=== PATIENT | female | born 1975 | race Caucasian/White ===

== ENCOUNTER 2021-08-29 07:54 | Outpatient (REF) | payer BC, SELFPAY | END 2021-08-29 07:55 | disposition home or self-care (01) | LOC: HO.HMGCLDS 07:54 | PROVIDERS: PCP Internal Medicine; Visit Provider Internal Medicine | DX: Z20.822 Contact with and (suspected) exposure to COVID-19 (principal) | CPT/HCPCS: C9803; U0003; U0005 ==

== ENCOUNTER 2023-01-02 10:53 | Outpatient (REF) | payer BC, SELFPAY ==
[2023-01-02 13:18] LABS: MANUAL DIFF FLAG NO
[2023-01-02 13:27] LABS: Basophils Absolute Auto 0.1 X10*3/uL (0.0-0.2); Basophils Percent Auto 0.7 % (0-2); Eosinophils Absolute Auto 0.2 X10*3/uL (0.0-0.4); Eosinophils Percent Auto 2.6 % (0-4); Hematocrit 37.2 % (37.0-47.0); Imm Gran Abs Auto 0.03 X10*3/uL (0.00-0.03); Imm Gran Pct Auto 0.4 % (0.0-0.4); Lymphocytes Absolute Auto 1.7 X10*3/uL (1.2-4.9); Lymphocytes Percent Auto 23.8 % (20-40); Mean Corpuscular HGB Conc 32.3 g/dl (31.0-35.0); Mean Corpuscular Hemoglobin 27.4 pg (27.0-33.0); Mean Corpuscular Volume 84.9 fL (80.0-98.0); Mean Platelet Volume 9.1 fL (9.4-12.3); Monocytes Absolute Auto 0.4 X10*3/uL (0.1-1.2); Monocytes Percent Auto 6.1 % (2-11); Neutrophils Absolute Auto 4.8 x10*3/uL (2.0-8.3); Neutrophils Percent Auto 66.4 % (45-73); Platelet Count 319 X10*3/uL (160-400); Red Blood Count 4.38 X10*6/uL (4.20-5.50); Red Cell Distribution Width 12.8 % (11.0-16.0); White Blood Count 7.3 X10*3/uL (4.8-10.8)
[2023-01-02 13:51] LABS: Anion Gap 12 (12-20); Blood Urea Nitrogen 19 mg/dL (9-16); Carbon Dioxide 28 mmol/L (22-29); Chloride 103 mmol/L (96-108); Cholesterol 229 mg/dL; Estimated Glomerular Filt Rate > 60; Glucose Fasting 92 mg/dL (60-99); HDL Cholesterol 64 mg/dL; LDL Cholesterol Calculated 149 mg/dl; Potassium 4.1 mmol/L (3.3-5.1); Sodium 139 mmol/L (135-145); Triglycerides 83 mg/dL
[2023-01-02 14:08] LABS: Thyroid Stimulating Hormone 0.49 uIU/mL (0.32-4.0)
== END 2023-01-02 10:54 | disposition home or self-care (01) ==
LOC: HO.10HDL 10:53
PROVIDERS: Visit Provider Internal Medicine
DX: E07.9 Disorder of thyroid, unspecified (principal); Z82.49 Family history of ischemic heart disease and other diseases of the circulatory system
CPT/HCPCS: 36415; 80048; 80061; 84443; 85025

== ENCOUNTER 2023-09-25 07:52 | Day surgery (SDC) | payer BC, SELFPAY ==
--- NOTE | 2023-09-24 09:50 | HO.ANESPROP2 ---
Documented by User: Cintia Suarez NP 09/24/23 09:52 HPI - Anesthesia Eval Consult details Narrative: 47yo F for Colonoscopy [facility] Past Medical History Medical History No known health problems Social History Social History Advance Directives: No Advance Directives Information Provided: Yes Meds Allergies Allergy/AdvReac Type Severity Reaction Status Date / Time No Known Allergies Allergy Verified 09/24/23 09:51 Home Medications Medication Instructions Recorded Confirmed Last Taken Type No Known Home Meds 09/24/23 09/24/23 Unknown History Documented by User: Iwona Aguilar MD 09/25/23 08:22 [facility] Past Medical History Medical History No known health problems Family History Family history of problems with anesthesia: No Surgical History History of Problems with Anesthesia: No Social History Social History Advance Directives: No Advance Directives Information Provided: Yes Meds Allergies Allergy/AdvReac Type Severity Reaction Status Date / Time No Known Allergies Allergy Verified 09/24/23 09:51 Home Medications Medication Instructions Recorded Confirmed Last Taken Type No Known Home Meds 09/24/23 09/24/23 Unknown History Exam Airway Mallampati Class: II TM Dist: >3cm Neck ROM: Full Heart: rrr Lungs: cta Assessment and Plan Assessment Anesthesia Assessment: Anesthesia Plan Discussed and Chart Reviewed Final Anesthetic Review Family History of Problems with Anesthesia: No History of Problems with Anesthesia: No NPO: Yes ASA Class: I Final Preanesthetic Review: No Changes in Pt Med Stat, Meds/Allgs Chart Reviewed, Consent Obtained/Reviewed and Anes Risks/Benef Reviewed Patient Risk: Low Procedure Risk: Low Anesthetic Plan Anesthetic Plan: MAC: Disposition: Standard PACU
--- OUTSIDE RECORDS SUMMARY | 2023-09-25 07:55 | XMS_ITS | Continuity of Care Document ---
Author Name Unknown Organization [facility] Address [address] [place] [address]- Care Team Providers Care Bronze Chaser Name Role Phone Mt Dinero MD Primary Care Physician Encounter 08/08/20 - 08/15/20 [facility] [address], [address] [place], [place] [address] Attending Physician: Dot Perez CNM Admitting Physician: Dot Perez CNM Referring Physician: Dot Perez CNM Allergies, Adverse Reactions, Alerts Substance Reaction Severity Status NKA Active Immunizations Given and Recorded Vaccine Date Status Refusal Reason influ virus vac, H1N1, inactive(oldterm) 1 07/05/09 Given Influenza Inactive (IM) (oldterm) 06/21/09 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 Refills 1, Soft Stop, 05/20/18 12:12:00 EDT, Route to Pharmacy Electronically, [id number], [facility] Start Date: 05/20/18 Status: Ordered Problem List Condition Effective Dates Status Health Status Inform ant Family history of neoplasm o f breast(Confirmed) Active H/O: breast problem(Confirmed) Active (Confirmed) Active Unexplained infertility(Confirmed) Active Social History Social History Type Response Smoking Status Never smoker entered on: 03/23/14 Sex
--- OUTSIDE RECORDS SUMMARY | 2023-09-25 07:55 | XMS_ITS | Continuity of Care Document ---
Author Name Unknown Organization [facility] [employer] [facility] Address [address] [place] [address]- Care Team Providers Care Supervisor Evaporator Name Role Phone Mt Dinero MD [id number] - 07/31/22 [facility] [employer] [facility] [address] [place], [place] [address] Allergies, Adverse Reactions, Alerts No Known Allergies Immunizations Given and Recorded Vaccine Date Status Refusal Reason influ virus vac, H1N1, inactive(oldterm) 1 07/05/09 Given Influenza Inactive (IM) (oldterm) 06/21/09 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 Refills 1, Soft Stop, 05/20/18 12:12:00 EDT, Route to Pharmacy Electronically, [id number], [facility] Start Date: 05/20/18 Status: Ordered Problem List Condition Confirmation Course Effective Dates Status Health [facility] Informant Family history of neoplasm of breast Confirmed Active H/O: breast problem Confirmed Active Confirmed Active Unexplained infertility Confirmed Active Social History Social History Type Response Smoking Status Never smoker entered on: 03/23/14 Sex Patient Care team information Care Team Personnel Name: Mt Dinero MD Position: S Outreach Member Role: PCP Address: Address: [address] [place] [address] Care Team Related Persons Name: JEAN MARIE UNDERWOOD Address: home [address] [place] [address]
--- OUTSIDE RECORDS SUMMARY | 2023-09-25 07:55 | XMS_ITS | Continuity of Care Document ---
Author Name Unknown Organization [facility] Address [address] [facility] [place] [address]- Care Team Providers Care Solar Development Engineer Name Role Phone Mt Dinero MD Primary Care Physician Encounter 09/12/22 - 09/19/22 [facility] [address], [address] [place] [address]- Attending Physician: Snehal Braga Admitting Physician: Snehal Braga Referring Physician: Snehal Braga Allergies, Adverse Reactions, Alerts No Known Allergies Immunizations Given and Recorded Vaccine Date Status Refusal Reason influ virus vac, H1N1, inactive(oldterm) 1 07/05/09 Given Influenza Inactive (IM) (oldterm) 06/21/09 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 Refills 1, Soft Stop, 05/20/18 12:12:00 EDT, Route to Pharmacy Electronically, [id number], [facility] Start Date: 05/20/18 Status: Ordered Problem List Condition Confirmation Course Effective Dates Status Health [facility] Informant Family history of neoplasm of breast Confirmed Active H/O: breast problem Confirmed Active Confirmed Active Unexplained infertility Confirmed Active Results Radiology Reports * Exam Date Time Procedure Performing Provider Status 09/12/22 11:13 AM MM Digital Mammo Screening Lillie Diaz; Auth (Verified) Notes: (MM Digital Mammo Screening) Reason For Exam: Z12.31 SCREEN RESULT: MM Digital Mammo Screening PROCEDURE: MM Digital Mammo Screening INDICATION: Screening. No known palpable abnormalities. COMPARISON: The back to 06/17/2018. TECHNIQUE: Full-field digital CC and MLO views of both breasts were obtained. 3-D tomography was used for this examination. Computer-aided detection (CAD) was utilized in the interpretation of this study. DENSITY: The breast tissue is heterogeneously dense, which may obscure masses. FINDINGS: There is no architectural distortion. There is no suspicious grouping of microcalcifications. On this MLO view IMPRESSION: 1. I recommend that the patient return for further evaluation of . Right MLO view only there is a 5 mm long axis oval abnormality located superiorly in the breast 3 cm from the nipple image 9/82. 2. Specifically, I recommend: Spot compression right MLO view with 3-D tomography. Lateral view right breast with 3-D tomography. If an abnormality persists, then ultrasound would be appropriate.. 3. No mammographic evidence of malignancy in the left breast. RECOMMENDATION: Diagnostic 3D tomosynthesis of the right breast with scheduled ultrasound BI-RADS: 0 (Incomplete - Need Additional Imaging Evaluation. Lay letter mailed to patient WSN: [id number] Ordering Physician: Snehal Ca Dictated By: Redd Martinez MD Dictated Date/Time: 09/12/22 1:25 pm Reviewed By: Redd Martinez MD Signed By: Redd Martinez MD Signed Date/Time: 09/12/22 1:25 pm Transcribed By: RASHIDA Supervisor Farm Equipment Maintenance Date/Time: 09/12/22 1:23 pm Birads: Social History Social History Type Response Smoking Status Never smoker entered on: 03/23/14 Sex MG Breast Screening * SP[employer] , CIS S: TRANSCRIBE Redd Martinez MD: VERIFY Event Display: Result: Authored Date: [id number] PROCEDURE: MM Digital Mammo Screening INDICATION: Screening. No known palpable abnormalities. COMPARISON: The back to 06/17/2018. TECHNIQUE: Full-field digital CC and MLO views of both breasts were obtained. 3-D tomography was used for this examination. Computer-aided detection (CAD) was utilized in the interpretation of this study. DENSITY: The breast tissue is heterogeneously dense, which may obscure masses. FINDINGS: There is no architectural distortion. There is no suspicious grouping of microcalcifications. On this MLO view IMPRESSION: 1. I recommend that the patient return for further evaluation of . Right MLO view only there is a 5 mm long axis oval abnormality located superiorly in the breast 3 cm from the nipple image . 2. Specifically, I recommend: Spot compression right MLO view with 3-D tomography. Lateral view right breast with 3-D tomography. If an abnormality persists, then ultrasound would be appropriate.. 3. No mammographic evidence of malignancy in the left breast. RECOMMENDATION: Diagnostic 3D tomosynthesis of the right breast with scheduled ultrasound BI-RADS: 0 (Incomplete - Need Additional Imaging Evaluation. Lay letter mailed to patient WSN: [id number] Ordering Physician: Snehal Ca Dictated By: Redd Martinez MD Dictated Date/Time: 09/12/22 1:25 pm Reviewed By: Redd Martinez MD Signed By: Redd Martinez MD Signed Date/Time: 09/12/22 1:25 pm Transcribed By: RASHIDA Supervisor Farm Equipment Maintenance Date/Time: 09/12/22 1:23 pm Birads: Patient Care team information Care Team Personnel Name: Mt Dinero MD Position: [facility] Outreach Member Role: PCP Address: Address: [address] [place] [address]- Care Team Related Persons Name: JEAN MARIE UNDERWOOD Address: home [address] [place] [address]
--- OUTSIDE RECORDS SUMMARY | 2023-09-25 07:55 | XMS_ITS | Continuity of Care Document ---
Author Name Unknown Organization [facility] [employer] [facility] Address [address] [place] [address]- Care Team Providers Care Karate Teacher Name Role Phone Mt Dinero MD Primary Care Phys[id number] Date(s): 07/01/22 - 07/31/22 [facility] [place] [facility] [address] [place], [place] [address] Allergies, Adverse Reactions, Alerts No Known Allergies Immunizations Given and Recorded Vaccine Date Status Refusal Reason influ virus vac, H1N1, inactive(oldterm) 1 07/05/09 Given Influenza Inactive (IM) (oldterm) 06/21/09 Given 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 Refills 1, Soft Stop, 05/20/18 12:12:00 EDT, Route to Pharmacy Electronically, [id number], [facility] Start Date: [...] Address: [address] Mt Dinero [place] [address] Care Team Related Persons Name: JEAN MARIE UNDERWOOD Address: home [address] [place] [address]
--- OUTSIDE RECORDS SUMMARY | 2023-09-25 07:55 | XMS_ITS | Continuity of Care Document ---
Author Name Unknown Organization [facility] [employer] [facility] Address [address], [address] [place] [address]- Care Team Providers Care Emergency Physician Name Role Phone Mt Dinero MD Primary Care Physician Encounter [facility] [id number] Date(s): 11/19/22 - 12/19/22 [facility] [address] [facility] [address] [facility] [address] [place], [place] [address] Attending Physician: Jasmin Neri Admitting Physician: AdmJasmin nelson Referring Physician: AdmJasmin nelson Allergies, Adverse Reactions, Alerts No Known Allergies Immunizations Given and Recorded Vaccine Date Status Refusal Reason influ virus vac, H1N1, inactive(oldterm) 1 07/05/09 Given Influenza Inactive (IM) (oldterm) 06/21/09 Given 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 Refills 1, Soft Stop, 05/20/18 12:12:00 EDT, Route to Pharmacy Electronically, [id number], [facility] Start Date: [...] S Outreach Member Role: PCP Address: Address: [address] [place] [address] [place] [address]- Care Team Related Persons Name: JEAN MARIE UNDERWOOD Address: home [address] [place] [address]
--- OUTSIDE RECORDS SUMMARY | 2023-09-25 07:55 | XMS_ITS | Continuity of Care Document ---
Author Name Unknown Organization [facility] Address [address] [place] [address]- Care Team Providers Care Scrap Iron Loader Name Role Phone Mt Dinero MD Primary Care Physician Encounter 09/25/22 - 10/02/22 [facility] [address], [address] [place] [address]- [place] Attending Physician: Snehal Braga Admitting Physician: Snehal Braga Referring Physician: Snehal Braga Allergies, Adverse Reactions, Alerts No Known Allergies Immunizations Given and Recorded Vaccine Date Status Refusal Reason influ virus vac, H1N1, inactive(oldterm) 1 07/05/09 Given Influenza Inactive (IM) (oldterm) 06/21/09 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 Refills 1, Soft Stop, 05/20/18 12:12:00 EDT, Route to Pharmacy Electronically, [id number], [facility] Start Date: 05/20/18 Status: Ordered Problem List Condition Confirmation Course Effective Dates Status Health [facility] Informant Family history of neoplasm of breast Confirmed Active H/O: breast problem Confirmed Active Confirmed Active Unexplained infertility Confirmed Active Results Radiology Reports * Exam Date Time Procedure Performing Provider Status 09/25/22 10:04 AM US Breast Right Limited Almas Stevenson da; Auth (Verified) Notes: (US Breast Right Limited) Reason For Exam: RT ABNORMAL MAMMO RESULT: US Breast Right Limited PROCEDURE: MM Digital Mammo Unilat Right INDICATION: Reason: RT ABNORMAL MAMMO . Callback from screening mammogram, asymmetry in the RIGHT breast on MLO view. Family history of breast cancer, mother at age 50, paternal grandmother at age 80. COMPARISON: 09/12/2022 and mammograms dating back to 06/17/2018. TECHNIQUE: Digital diagnostic RIGHT mammogram: 3-D spot compression MLO view. 3-D full field ML view. Computer-aided detection (CAD) was utilized in the interpretation of this study. Targeted high-resolution RIGHT breast ultrasound. FINDINGS: MAMMOGRAM: No persistent abnormality seen on the spot compression MLO view; the asymmetry compresses out and blends in with adjacent fibroglandular tissue. On the full-field ML view there is a 4-5 mmovoid partially obscured asymmetry 1.8 cm from the nipple likely what was seen on the original MLO view, localizes lateral on the ML tomosynthesis images. Further imaging performed with ultrasound. ULTRASOUND: Targeted high-resolution RIGHT breast ultrasound, focused imaging 9:00 to 12:00 retroareolar up to 4 cm from the nipple, in the region of the asymmetry. At the 10:00 position 3 cm from the nipple there is an oval anechoic avascular simple cyst measuring 4 x 2 x 3 mm, thought to correlate with the ovoid asymmetry on mammography. No suspicious solid mass or shadowing. IMPRESSION: No mammographic or ultrasound evidence of malignancy. Benign 4 mm RIGHT breast cyst. Recommend return to annual screening mammography. RECOMMENDATION: Annual mammographic screening BI-RADS: 2 (Benign) Lay letter mailed to patient Results and follow-up recommendations verbally communicated to the patient at [facility] 09/25/2022 10:06 AM. WSN: [id number] Ordering Physician: Snehal Ca Dictated By: Magdalene Foster MD Dictated Date/Time: 09/25/22 11:54 a Reviewed By: Magdalene Foster MD Signed By: Magdalene Foster MD Signed Date/Time: 09/25/22 11:54 am Transcribed By: RASHIDA Transcribed Date/Time: 09/25/22 11:54 am * Exam Date Time Procedure Performing Provider Status 09/25/22 9:14 AM MM Digital Mammo Unilat Right Yolanda Ghosh; Auth (Verified) Notes: (MM Digital Mammo Unilat Right) Reason For Exam: RT ABNORMAL MAMMO RESULT: MM Digital Mammo Unilat Right PROCEDURE: MM Digital Mammo Unilat Right INDICATION: Reason: RT ABNORMAL MAMMO . Callback from screening mammogram, asymmetry in the RIGHT breast on MLO view. Family history of breast cancer, mother at age 50, paternal grandmother at age 80. COMPARISON: 09/12/2022 and mammograms dating back to 06/17/2018. TECHNIQUE: Digital diagnostic RIGHT mammogram: 3-D spot compression MLO view. 3-D full field ML view. Computer-aided detection (CAD) was utilized in the interpretation of this study. Targeted high-resolution RIGHT breast ultrasound. FINDINGS: MAMMOGRAM: No persistent abnormality seen on the spot compression MLO view; the asymmetry compresses out and blends in with adjacent fibroglandular tissue. On the full-field ML view there is a 4-5 mmovoid partially obscured asymmetry 1.8 cm from the nipple likely what was seen on the original MLO view, localizes lateral on the ML tomosynthesis images. Further imaging performed with ultrasound. ULTRASOUND: Targeted high-resolution RIGHT breast ultrasound, focused imaging 9:00 to 12:00 retroareolar up to 4 cm from the nipple, in the region of the asymmetry. At the 10:00 position 3 cm from the nipple there is an oval anechoic avascular simple cyst measuring 4 x 2 x 3 mm, thought to correlate with the ovoid asymmetry on mammography. No suspicious solid mass or shadowing. IMPRESSION: No mammographic or ultrasound evidence of malignancy. Benign 4 mm RIGHT breast cyst. Recommend return to annual screening mammography. RECOMMENDATION: Annual mammographic screening BI-RADS: 2 (Benign) Lay letter mailed to patient Results and follow-up recommendations verbally communicated to the patient at [facility] 09/25/2022 10:06 AM. 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 Callback from screening mammogram, asymmetry in the RIGHT breast on MLO view. Family history of breast cancer, mother at age 50, paternal grandmother at age 80. COMPARISON: 09/12/2022 and mammograms dating back to 06/17/2018. TECHNIQUE: Digital diagnostic RIGHT mammogram: 3-D spot compression MLO view. 3-D full field ML view. Computer-aided detection (CAD) was utilized in the interpretation of this study. Targeted high-resolution RIGHT breast ultrasound. FINDINGS: MAMMOGRAM: No persistent abnormality seen on the spot compression MLO view; the asymmetry compresses out and blends in with adjacent fibroglandular tissue. On the full-field ML view there is a 4-5 mmovoid partially obscured asymmetry 1.8 cm from the nipple likely what was seen on the original MLO view, localizes lateral on the ML tomosynthesis images. Further imaging performed with ultrasound. ULTRASOUND: Targeted high-resolution RIGHT breast ultrasound, focused imaging 9:00 to 12:00 retroareolar up to 4 cm from the nipple, in the region of the asymmetry. At the 10:00 position 3 cm from the nipple there is an oval anechoic avascular simple cyst measuring 4 x 2 x 3 mm, thought to correlate with the ovoid asymmetry on mammography. No suspicious solid mass or shadowing. IMPRESSION: No mammographic or ultrasound evidence of malignancy. Benign 4 mm RIGHT breast cyst. Recommend return to annual screening mammography. RECOMMENDATION: Annual mammographic screening BI-RADS: 2 (Benign) Lay letter mailed to patient Results and follow-up recommendations verbally communicated to the patient at [facility] 09/25/2022 10:06 AM. WSN: [id number] Ordering Physician: Snehal Ca Dictated By: Magdalene Foster MD Dictated Date/Time: 09/25/22 10:07 am Reviewed By: Magdalene Foster MD Signed By: Magdalene Foster MD Signed Date/Time: 09/25/22 10:07 am Transcribed By: RASHIDA Granite Worker Date/Time: 09/25/22 10:04 am Birads: US Breast - right limited * BHSP[employer]ers[employer] , CIS S: TRANSCRIBE Magdalene Foster MD: VERIFY Event Display: Result: Authored Date: [id number] PROCEDURE: MM Digital Mammo Unilat Right INDICATION: Reason: RT ABNORMAL MAMMO . Callback from screening mammogram, asymmetry in the RIGHT breast on MLO view. Family history of breast cancer, mother at age 50, paternal grandmother at age 80. COMPARISON: 09/12/2022 and mammograms dating back to 06/17/2018. TECHNIQUE: Digital diagnostic RIGHT mammogram: 3-D spot compression MLO view. 3-D full field ML view. Computer-aided detection (CAD) was utilized in the interpretation of this study. Targeted high-resolution RIGHT breast ultrasound. FINDINGS: MAMMOGRAM: No persistent abnormality seen on the spot compression MLO view; the asymmetry compresses out and blends in with adjacent fibroglandular tissue. On the full-field ML view there is a 4-5 mmovoid partially obscured asymmetry 1.8 cm from the nipple likely what was seen on the original MLO view, localizes lateral on the ML tomosynthesis images. Further imaging performed with ultrasound. ULTRASOUND: Targeted high-resolution RIGHT breast ultrasound, focused imaging 9:00 to 12:00 retroareolar up to 4 cm from the nipple, in the region of the asymmetry. At the 10:00 position 3 cm from the nipple there is an oval anechoic avascular simple cyst measuring 4 x 2 x 3 mm, thought to correlate with the ovoid asymmetry on mammography. No suspicious solid mass or shadowing. IMPRESSION: No mammographic or ultrasound evidence of malignancy. Benign 4 mm RIGHT breast cyst. Recommend return to annual screening mammography. RECOMMENDATION: Annual mammographic screening BI-RADS: 2 (Benign) Lay letter mailed to patient Results and follow-up recommendations verbally communicated to the patient at [facility] 09/25/2022 10:06 AM. WSN: [id number] Ordering Physician: Snehal Ca Dictated By: Magdalene Foster MD Dictated Date/Time: 09/25/22 11:54 a Reviewed By: Magdalene Foster MD Signed By: Magdalene Foster MD Signed Date/Time: 09/25/22 11:54 am Transcribed By: RASHIDA Transcribed Date/Time: 09/25/22 11:54 am Patient Care team information Care Team Personnel Name: Mt Dinero MD Position: S Outreach Member Role: PCP Address: Address: [address] [place] [address] [place] [address]- Care Team Related Persons Name: JEAN MARIE UNDERWOOD Address: home [address] [place] [address]
--- OUTSIDE RECORDS SUMMARY | 2023-09-25 07:55 | XMS_ITS | Continuity of Care Document ---
Author Name Unknown Organization [facility] [place] [address] [place] [address]- Care Team Providers Care Mold Clamper Name Role Phone Mt Dinero MD Primary Care Physician Encounter 08/14/21 - 08/21/21 [facility] [address], [address] [place], [place] [address] Attending Physician: Dot Perez CNM Admitting Physician: Dot Perez CNM Referring Physician: Dot Perez CNM Allergies, Adverse Reactions, Alerts Substance Reaction Severity Status NKA Active Immunizations Given and Recorded Vaccine Date Status Refusal Reason influ virus vac, H1N1, inactive(oldterm) 1 07/05/09 Given Influenza Inactive (IM) (oldterm) 06/21/09 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 Refills 1, Soft Stop, 05/20/18 12:12:00 EDT, Route to Pharmacy Electronically, [id number], [facility] Start Date: 05/20/18 Status: Ordered Problem List Condition Effective Dates Status Health Status Inform ant Family history of neoplasm o f breast(Confirmed) Active H/O: breast problem(Confirmed) Active (Confirmed) Active Unexplained infertility(Confirmed) Active Social History Social History Type Response Smoking Status Never smoker entered on: 03/23/14 Sex
--- OUTSIDE RECORDS SUMMARY | 2023-09-25 07:55 | XMS_ITS | Continuity of Care Document ---
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 Name Role Phone Mt Dinero MD Primary Care Physician [phone] Encounter [facility] [id number] Date(s): 11/19/22 - 11/26/22 [facility] [employer] [address] [place], [place] [address] Attending Physician: Montrell Crook MD Referring Physician: Snehal Barga Allergies, Adverse Reactions, Alerts No Known Allergies Immunizations Given and Recorded Vaccine Date Status Refusal Reason influ virus vac, H1N1, inactive(oldterm) 1 07/05/09 Given Influenza Inactive (IM) (oldterm) 06/21/09 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 Refills 1, Soft Stop, 05/20/18 12:12:00 EDT, Route to Pharmacy Electronically, [id number], [facility] Start Date: 05/20/18 Status: Ordered Problem List Condition Confirmation Course Effective Dates Status Health St [facility] Informant Family history of neoplasm of breast Confirmed Active H/O: breast problem Confirmed Active Confirmed Active Unexplained infertility Confirmed Active Vital Signs Most recent to oldest [Reference Range]: 1 Height 162.56 cm (11/19/22 1:40 PM) Weight 75.90 kg (11/19/22 1:40 PM) Body Mass Index [18.5-24.99 kg/m2] 28.72 kg/m2 *H* (11/19/22 1:40 PM) Blood Pressure [90-138/55-84 mm Hg] 135/ 68mm Hg (11/19/22 1:40 PM) Blood pressure sites Arm, left (11/19/22 1:40 PM) Weight Obtained Via Standing scale (11/19/22 1:40 PM) Social History Social History Type Response Smoking Status Never smoker entered on: 03/23/14 Sex Patient Care team information Care Team Personnel Name: Mt Dinero MD Position: [facility] Outreach Member Role: PCP Address: Address: [address] [place] [address]- Care Team Related Persons Name: JEAN MARIE UNDERWOOD Address: [address] [place] [address]
[2023-09-25] MEDS: Lactated Ringers 1,000 ML 100 ML IVCONT (08:10)
[2023-09-25 08:18] VITALS: BMI 29.8
[2023-09-25 08:18] LABS: UPreg QC Valid YES
[2023-09-25 08:19] LABS: Urine Pregnancy NEGATIVE (NEGATIVE)
[2023-09-25 08:30] VITALS: BP 138/74; PULSE 99; RESP 18; TEMP 36.7; O2SAT 99
[2023-09-25 09:45] VITALS: BP 107/64; PULSE 81; RESP 16; TEMP 36.4; O2SAT 97
--- NOTE | 2023-09-25 09:48 | P.BOP_ITS ---
Brief Operative Note Date of Service: 09/25/23 Pre-op diagnosis: Screening Post-op diagnosis: other (Occasional sigmoid diverticulosis) Procedure: Colonoscopy to the cecum and TI Surgeon: Santhosh Leahy MD Anesthesia: MAC Was an Scientific Recruiter used for this Procedure?: No Estimated blood loss (mL): 0 Pathology: none sent Condition: stable Disposition: PACU
[2023-09-25 10:00] VITALS: BP 109/68; PULSE 74; RESP 18; TEMP 36.4; O2SAT 98
--- NOTE | 2023-09-25 10:22 | OP_ITS ---
DATE OF SERVICE: 09/25/2023 SURGEON: Santhosh Leahy MD INDICATIONS: The patient presents for evaluation of colorectal cancer screening. Full consent has been obtained from her for this, including risks of bleeding and perforation. PREOPERATIVE DIAGNOSIS: Colorectal cancer screening. POSTOPERATIVE DIAGNOSIS: PROCEDURE PERFORMED: Colonoscopy to cecum and terminal ileum. ESTIMATED BLOOD LOSS: COMPLICATIONS: ANESTHESIA: Monitored anesthesia care. ASSISTANTS: SPECIMENS: POSTOPERATIVE DIAGNOSES: Colorectal cancer screening, occasional sigmoid diverticulosis, internal hemorrhoids. DESCRIPTION OF PROCEDURE: The patient was placed in the left lateral decubitus position. The digital rectal exam revealed no abnormalities. The Olympus video pediatric colonoscope was entered into the rectum and advanced easily to the cecum. Once in the cecum, I did identify normal-appearing cecal pouch with appendiceal orifice and a normal-appearing ileocecal valve. The terminal ileum was cannulated and appeared normal. The scope withdrawn back in the colon. The entire cecum and ileocecal valve appeared normal. The scope was slowly withdrawn assessing all mucosal surfaces carefully. Preparation was excellent. I did not visualize any sign of polyps, colitis, nor angiodysplasia. There were occasional diverticula in the sigmoid colon. In the rectum, scope was retroflexed visualizing internal hemorrhoids, but no other pathology. The rectal mucosa appeared normal. Scope was straightened and withdrawn from the patient. She tolerated the procedure well and was returned to the recovery area in stable condition. IMPRESSION: 1. Occasional sigmoid diverticulosis. 2. Internal hemorrhoids. PLAN: Given today's negative exam and no family history, I would recommend a followup colonoscopy in 10 years for further screening. She will otherwise see me on a p.r.n. basis. Santhosh Leahy MD RMW/LEXAL / [id number]
== END 2023-09-25 10:15 | disposition home or self-care (01) ==
PROVIDERS: Nurse Practitioner; PCP Internal Medicine; Visit Provider Internal Medicine
PROC: 0DJD8ZZ Inspection of Lower Intestinal Tract, Via Natural or Artificial Opening Endoscopic (ICD-10-PCS; CPT 45378; principal; 2023-09-25 09:00)
DX: Z12.11 Encounter for screening for malignant neoplasm of colon (principal); K57.30 Diverticulosis of large intestine without perforation or abscess without bleeding; K64.8 Other hemorrhoids
CPT/HCPCS: 45378; 81025; J2704